=== PATIENT | female | born 1995 | race African-American/Black ===

== ENCOUNTER 2017-06-20 16:43 | Emergency (ER) | payer SELFPAY ==
[~2017-06-20] VITALS: Ht 167.6 cm; Wt 70.3 kg
[~2017-06-20 16:43] MED LIST: AMOX1TAB61 PO; HYDR-971 PO
[2017-06-20 17:30] VITALS: BP 109/60
[2017-06-20] MEDS ORDERED: ACET-704 PO (17:32)
[2017-06-20] MEDS ORDERED: AMOX500T PO (17:32)
[2017-06-20] MEDS ORDERED: IBUP-1060 PO (17:32)
--- NOTE | 2017-06-20 17:32 | PHYS DOC ---
Past Medical History Past Medical History: Abscess Past Surgical History: No Surgical History Alcohol Use: Occasionally Drug Use: Marijuana Adult General Chief Complaint Chief Complaint: SORE THROAT HPI HPI Patient is a 21 year old female with no significant medical history who presents today with mild left lower gum dental pain and a sore throat that began 3 days ago. Patient denies any fever. Denies any trismus. She states she has an appointment with her dentist next week for extraction. Review of Systems Review of Systems Constitutional: Denies fever or chills [] Eyes: Denies change in visual acuity, redness, or eye pain [] HENT: Left lower gum dental pain and sore throat. Denies nasal congestion Respiratory: Denies cough or shortness of breath [] Cardiovascular: No additional information not addressed in HPI [] GI: Denies abdominal pain, nausea, vomiting, bloody stools or diarrhea [] : Denies dysuria or hematuria [] Musculoskeletal: Denies back pain or joint pain [] Integument: Denies rash or skin lesions [] Neurologic: Denies headache, focal weakness or sensory changes [] Allergies Allergies Allergies Coded Allergies Type Severity Reaction Last Updated Verified No Known Drug Allergies 10/28/14 No Physical Exam Physical Exam Constitutional: Well developed, well nourished, no acute distress, non-toxic appearance. [] HENT: Normocephalic, atraumatic, bilateral external ears normal, oropharynx moist, no oral exudates, nose normal. [] Tooth #19 is decayed and broken. Dental caries noted on the left lower teeth and left upper teeth. Eyes: PERRLA, EOMI, conjunctiva normal, no discharge. [] Neck: Normal range of motion, no tenderness, supple, no stridor. [] Cardiovascular:Heart rate regular rhythm, no murmur [] Lungs & Thorax: Bilateral breath sounds clear to auscultation [] Abdomen: Bowel sounds normal, soft, no tenderness, no masses, no pulsatile masses. [] Skin: Warm, dry, no erythema, no rash. [] Back: No tenderness, no CVA tenderness. [] Extremities: No tenderness, no cyanosis, no clubbing, ROM intact, no edema. [] Neurologic: Alert and oriented X 3, normal motor function, normal sensory function, no focal deficits noted. [] Psychologic: Affect normal, judgement normal, mood normal. [] EKG EKG [] Radiology/Procedures Radiology/Procedures [] Course & Med Decision Making Course & Med Decision Making Pertinent Labs and Imaging studies reviewed. (See chart for details) Patient has infected dental caries and pharyngitis. Discharged with amoxicillin. Follow-up with the dentist next week as scheduled. Dragon Disclaimer Dragon Disclaimer This electronic medical record was generated, in whole or in part, using a voice recognition dictation system. Departure Departure Impression: Primary Impression: Dentalgia Additional Impressions: Infected dental caries Pharyngitis, acute Disposition: HOME, SELF-CARE Condition: STABLE Referrals: NO PCP (PCP) folllow up with your dentist next week Patient Instructions: Dental Caries, Viral and Bacterial Pharyngitis Additional Instructions: You were seen for infected dental caries and pharyngitis. Ensure you complete your antibiotics. Take the prescribed medicines as ordered. Follow-up with your dentist next week. Scripts Acetaminophen With Codeine (TYLENOL WITH CODEINE #3 TABLET) 1 Each Tablet 1 TAB PO PRN Q6HRS Y for PAIN, #30 TAB Prov: JANENE OLMEDO [employer]CHO[employer] LANGUAGE TUTOR 06/20/17 Ibuprofen (IBUPROFEN) 800 Mg Tablet 800 MG PO PRN Q6HRS Y for INFLAMMATION, #30 TAB Prov: JANENE OLMEDO APRN 17 Amoxicillin (AMOXICILLIN) 500 Mg Tablet 1 TAB PO TID, #30 TAB Prov: JANENE OLMEDO APRN 06/20/17 Problem Qualifiers Additional Impressions: Pharyngitis, acute Pharyngitis/tonsillitis etiology: unspecified etiology Qualified Codes: J02.9 - Acute pharyngitis, unspecified JANENE OLMEDO [employer] L[employer]UAGE TUTOR Jun 20, 2017 17:32
== END 2017-06-20 17:40 | disposition home or self-care (01) ==
LOC: ER 16:43
DX: K04.7 Periapical abscess without sinus (principal); K02.9 Dental caries, unspecified; J02.9 Acute pharyngitis, unspecified
CPT/HCPCS: 99283

== ENCOUNTER 2018-01-29 12:09 | Emergency (ER) | payer OTHER ==
[2018-01-29 14:33] LABS: URINE HCG POC HCG NEGATIVE (Negative)
[2018-01-29 15:03] LABS: BILIRUBIN,URINE NEGATIVE (NEG); CLARITY,URINE CLEAR; COLOR,URINE YELLOW; GLUCOSE,URINE NEGATIVE (NEG); NITRITE,URINE NEGATIVE (NEG); PROTEIN,URINE NEGATIVE (NEG-TRACE); UROBILINOGEN,URINE 0.2 mg/dL (0.2 mg/dL)
[2018-01-29 15:24] LABS: BACTERIA,URINE MODERATE /HPF (0-FEW); RBC,URINE 0 /HPF (0-2); SQUAMOUS EPITHELIAL CELL,UR OCC /LPF
== END 2018-01-29 16:19 | disposition home or self-care (01) ==
LOC: ER 16:19
DX: K59.00 Constipation, unspecified (principal); N39.0 Urinary tract infection, site not specified; M54.5 Low back pain; F12.10 Cannabis abuse, uncomplicated
CPT/HCPCS: 74022; 81001; 81025; 87086; 99285

== ENCOUNTER 2018-06-18 09:08 | Emergency (ER) | payer OTHER ==
[~2018-06-18] VITALS: Ht 170.2 cm; Wt 77.1 kg
[~2018-06-18 09:08] MED LIST changes: +ACET-704 PO; +AMOX500T PO; +CEPH-263 PO; +DICY10CA3 PO; +IBUP-1060 PO; +MAGN296S9 PO
[2018-06-18 09:19] VITALS: BP 125/59
--- NOTE | 2018-06-18 09:25 | PHYS DOC ---
Past Medical History Past Medical History: Abscess Past Surgical History: No Surgical History Alcohol Use: Occasionally Drug Use: Marijuana Adult General Chief Complaint Chief Complaint: OTHER COMPLAINTS HPI HPI Patient is a 22 year old female who presents complaining of infected area around her belly button after removal of the hardware/ring yesterday. Patient states she noted the area had pus. Patient denies any fever. Review of Systems Review of Systems Constitutional: Denies fever or chills [] Musculoskeletal: Denies back pain or joint pain [] Integument:infection around the belly button after removal of the hardware/ring Neurologic: Denies headache, focal weakness or sensory changes [] All other systems were reviewed and found to be within normal limits, except as documented in this note. Current Medications Current Medications Current Medications Medications (Trade) Dose Ordered Sig/Johnathon Start Time Stop Time Status Last Admin Dose Admin Diphtheria/ Tetanus/Acell Pertussis (Boostrix) 0.5 ml ONCE ONCE 06/18/18 09:30 06/18/18 09:31 DC Allergies Allergies Allergies Coded Allergies Type Severity Reaction Last Updated Verified No Known Drug Allergies 10/28/14 No Physical Exam Physical Exam Constitutional: Well developed, well nourished, no acute distress, non-toxic appearance. [] Skin: Warm, dry, the area above the belly button has two scars consistent with belly button ring piercing, there is no redness, no erythema, trace scarring. Back: No tenderness, no CVA tenderness. [] Extremities: No tenderness, no cyanosis, no clubbing, ROM intact, no edema. [] Neurologic: Alert and oriented X 3, normal motor function, normal sensory function, no focal deficits noted. [] Psychologic: Affect normal, judgement normal, mood normal. [] Current Patient Data Vital Signs Vital Signs Date Time Temp Pulse Resp B/P (MAP) Pulse Ox O2 Delivery O2 Flow Rate FiO2 06/18/18 09:19 97.9 99 14 125/59 (81) 100 Room Air 97.9 EKG EKG [] Radiology/Procedures Radiology/Procedures [] Course & Med Decision Making Course & Med Decision Making Pertinent Labs and Imaging studies reviewed. (See chart for details) This is a 22-year-old female patient presenting to the ED today stating she removed a ring from her belly button and, noted pus from the area. No pus noted on physical exam. She was put on cephalexin. She was instructed to keep the area clean and dry. Informed the area will close. Instructed to follow-up with PCP as needed. Tetanus updated. Aniceto Disclaimer Aniceto Disclaimer This electronic medical record was generated, in whole or in part, using a voice recognition dictation system. Departure Departure Impression: Primary Impression: Skin infection Disposition: HOME, SELF-CARE Condition: STABLE Referrals: NO PCP (PCP) follow up with your doctor in one week Patient Instructions: Skin Infections Additional Instructions: Please keep the affected area clean and dry. You can shower. Complete your antibiotics. Follow-up with your doctor in 1-2 weeks as needed. Him back to the ED at any point symptoms worsen. Scripts Cephalexin (CEPHALEXIN) 500 Mg Tablet 1 TAB PO QID, #40 TAB Prov: JANENE OLMEDO APRN 06/18/18 JANENE OLMEDO APRN Jun 18, 2018 09:25
[2018-06-18] MEDS ORDERED: DIPHTH,PERTUSS(ACELL),TET TOX 0.5 ML DISP.SYRIN. VAX IM ONE (09:30)
[2018-06-18] MEDS ORDERED: CEPH500T PO (09:32)
== END 2018-06-18 09:34 | disposition home or self-care (01) ==
LOC: ER 09:08
DX: L08.89 Other specified local infections of the skin and subcutaneous tissue (principal)
CPT/HCPCS: 90471; 90715; 99283-25

== ENCOUNTER 2018-07-10 16:45 | Emergency (ER) | payer OTHER ==
[~2018-07-10] VITALS: Ht 170.2 cm; Wt 77.1 kg
[~2018-07-10 16:45] MED LIST changes: +CEPH500T PO
[2018-07-10 17:16] LABS: BILIRUBIN,URINE NEGATIVE (NEG); CLARITY,URINE CLEAR; COLOR,URINE AMBER; NITRITE,URINE NEGATIVE (NEG); PROTEIN,URINE 100 mg/dL (NEG-TRACE); UROBILINOGEN,URINE 0.2 mg/dL (0.2 mg/dL)
[2018-07-10 17:18] LABS: BACTERIA,URINE FEW /HPF (0-FEW); RBC,URINE TNTC /HPF (0-2); SQUAMOUS EPITHELIAL CELL,UR OCC /LPF; WBC,URINE 0 /HPF (0-4)
--- NOTE | 2018-07-10 18:06 | PHYS DOC ---
Past Medical History Past Medical History: Abscess Past Surgical History: No Surgical History Alcohol Use: Occasionally Drug Use: Marijuana Adult General Chief Complaint Chief Complaint: ABDOMINAL PAIN HPI HPI Patient is a 22 year old female who presents with 7 out of 10 intermittent throbbing left flank pain that has been going on for 2 weeks. Patient is also complaining of urinary frequency since this morning. Patient is also complaining of nausea with no vomiting. Denies any chance she is . Denies any fever. Review of Systems Review of Systems Constitutional: Denies fever or chills [] Eyes: Denies change in visual acuity, redness, or eye pain [] HENT: Denies nasal congestion or sore throat [] Respiratory: Denies cough or shortness of breath [] Cardiovascular: No additional information not addressed in HPI [] GI: Denies abdominal pain, nausea, vomiting, bloody stools or diarrhea [] : Reports dysuria, denies hematuria [] Musculoskeletal: Reports left flank pain, denies joint pain [] Integument: Denies rash or skin lesions [] Neurologic: Denies headache, focal weakness or sensory changes [] Endocrine: Denies polyuria or polydipsia [] All other systems were reviewed and found to be within normal limits, except as documented in this note. Allergies Allergies Allergies Coded Allergies Type Severity Reaction Last Updated Verified No Known Drug Allergies 10/28/14 No Physical Exam Physical Exam Constitutional: Well developed, well nourished, no acute distress, non-toxic appearance. [] HENT: Normocephalic, atraumatic, bilateral external ears normal, oropharynx moist, no oral exudates, nose normal. [] Eyes: PERRLA, EOMI, conjunctiva normal, no discharge. [] Neck: Normal range of motion, no tenderness, supple, no stridor. [] Cardiovascular:Heart rate regular rhythm, no murmur [] Lungs & Thorax: Bilateral breath sounds clear to auscultation [] Abdomen: Bowel sounds normal, soft, no tenderness, no masses, no pulsatile masses. [] Skin: Warm, dry, no erythema, no rash. [] Back: No tenderness, no CVA tenderness. [] Extremities: No tenderness, no cyanosis, no clubbing, ROM intact, no edema. [] Neurologic: Alert and oriented X 3, normal motor function, normal sensory function, no focal deficits noted. [] Psychologic: Affect normal, judgement normal, mood normal. [] Current Patient Data Vital Signs Vital Signs Date Time Temp Pulse Resp B/P (MAP) Pulse Ox O2 Delivery O2 Flow Rate FiO2 07/10/18 18:44 77 118/77 (91) 100 Room Air 07/10/18 17:07 97.9 16 97.9 Lab Values Laboratory Tests Test 07/10/18 16:51 07/10/18 17:01 Urine Collection Type Unknown Urine Color Deyanira Urine Clarity Clear Urine pH 6.0 Urine Specific Laurel >=1.030 Urine Protein 100 mg/dL (NEG-TRACE) Urine Glucose (UA) Negative mg/dL (NEG) Urine Ketones (Stick) Trace mg/dL (NEG) Urine Blood Large (NEG) Urine Nitrite Negative (NEG) Urine Bilirubin Negative (NEG) Urine Urobilinogen Dipstick 0.2 mg/dL (0.2 mg/dL) Urine Leukocyte Esterase Trace (NEG) Urine RBC Tntc /HPF (0-2) Urine WBC 0 /HPF (0-4) Urine Squamous Epithelial Cells Occ /LPF Urine Bacteria Few /HPF (0-FEW) Urine Mucus Slight /LPF POC Urine HCG, Qualitative Hcg negative (Negative) EKG EKG [] Radiology/Procedures Radiology/Procedures []PROCEDURE: CT ABDOMEN PELVIS WO CONTRAST CT abdomen and pelvis without contrast 07/10/2018 CLINICAL INDICATION: Left flank pain. COMPARISON: None. TECHNIQUE: Multiple CT images of the abdomen and pelvis were obtained without contrast. *One or more of the following individualized dose reduction techniques were utilized for this examination: 1. Automated exposure control. 2. Adjustment of the mA and/or kV according to patient size. 3. Use of iterative reconstruction technique. FINDINGS: Heart size is normal. Visualized lung bases are clear. Evaluation of the solid abdominal pelvic viscera, lymphadenopathy and vasculature. Unenhanced contours of the liver, spleen, adrenal glands, pancreas and kidneys are grossly unremarkable. Abdominal aorta normal in caliber. Small and large bowel loops are normal in caliber without obstruction. The appendix is normal in appearance. No abdominal free fluid. No pneumoperitoneum. Urinary bladder is decompressed. Uterus is grossly unremarkable. There is minimal asymmetric enlargement of the left ovary relative to the right. No pelvic free fluid. There are no destructive osseous lesions. IMPRESSION: 1. No hydronephrosis or nephrolithiasis. 2. There is minimal asymmetric enlargement of the left ovary relative to the right, likely physiologic. If there is concern, pelvic ultrasound could be obtained. Electronically signed by: Emmanuel Delong MD (07/10/2018 6:02 PM) [facility] DICTATED and SIGNED BY: EMMANUEL DELONG MD DATE: 07/10/18 5276 Course & Med Decision Making Course & Med Decision Making Pertinent Labs and Imaging studies reviewed. (See chart for details) This is a 22-year-old female patient presenting to the ED today with complaints of left flank pain intermittently for 2 weeks. Also complaining of urinary frequency that began today. UA negative for infection. CT of the abdomen and pelvic was noted for-minimal asymmetric enlargement of the left ovary relative to the right, likely physiologic. If there is concern, pelvic ultrasound could be obtained. Pelvic ultrasound was done, noted for left dominant follicle versus simple cyst. Provided patient an TRAIN DISPATCHER, and requested she follows up in 6 weeks for repeat ultrasound. Dragon Disclaimer Dragon Disclaimer This electronic medical record was generated, in whole or in part, using a voice recognition dictation system. Departure Departure Impression: Primary Impression: Left flank pain Additional Impression: Ovarian cyst Disposition: HOME, SELF-CARE Condition: STABLE Referrals: NO PCP (PCP) KORI HERNANDEZ Jr, MD Follow-up in 1-2 weeks Patient Instructions: Flank Pain, [id number], Ovarian Cyst, [id number] Additional Instructions: You were evaluated in the emergency room and noted to have a simple cyst on your left ovary. Try and follow-up with your TRAIN DISPATCHER in the next 6 weeks for repeat ultrasound to monitor resolution of the cyst. Take the prescribed pain medicine as needed. Scripts Ibuprofen (IBUPROFEN) 800 Mg Tablet 800 MG PO PRN Q6HRS PRN for INFLAMMATION, #30 TAB Prov: MUTUNGAJANENE SALES SERVICE PROFESSIONAL 07/10/18 Cyclobenzaprine Hcl (CYCLOBENZAPRINE HCL) 10 Mg Tablet 1 TAB PO TID, #30 TAB Prov: MUTUNGAJANENE SAL[employer] SERVICE PROFESSIONAL 07/10/18 Problem Qualifiers Additional Impression: Ovarian cyst Laterality: left Qualified Codes: N83.202 - Unspecified ovarian cyst, left side JANENE OLMEDO SALES SERVICE PROFESSIONAL Jul 10, 2018 18:06
[2018-07-10 18:44] VITALS: BP 118/77
--- NOTE | 2018-07-10 20:08 | RAD ---
Complete pelvic ultrasound TECHNIQUE: Transabdominal transducer with grayscale and duplex Doppler sonography was utilized. HISTORY: Left-sided pelvic pain. FINDINGS: Transabdominal imaging demonstrates anteverted uterus measuring 8.5 x 4.3 x 5.6 cm. Left ovary measures 3.2 x 2.5 x 5.0 cm with a 2.5 cm dominant follicle. Right ovary measures 2.6 x 2.2 x 1.3 cm. There is intact bilateral ovarian blood flow. Endometrial thickness abnormal measuring 2.6 cm. Limited visualization of the lower uterine segment. IMPRESSION: 1. Abnormal thickening of the endometrium measuring 2.6 cm in thickness. This could be exuberant proliferative endometrium related to the menstrual cycle or hormonal stimulation although endometrial hyperplasia or early carcinoma are not excluded. 2. 2.5 cm left ovarian dominant follicle. No evidence of ovarian torsion. Electronically signed by: Ismael Boston MD (07/10/2018 8:05 PM) [id number]
[2018-07-10] MEDS ORDERED: CYCL10TA2 PO (20:13)
[2018-07-10] MEDS ORDERED: IBUP-1060 PO (20:13)
== END 2018-07-10 20:24 | disposition home or self-care (01) ==
LOC: ER 16:45
DX: N83.202 Unspecified ovarian cyst, left side (principal)
CPT/HCPCS: 74176; 76856; 81001; 81025; 87086; 99285-25